=== PATIENT | female | born 1950 | race Asian ===

== ENCOUNTER → 2020-07-24 | Outpatient (CLI) | payer MEDICARE, OTHER ==
[~2020-07-24] MED LIST: ACTONEL75 MG; CALCIUM200 MG PO; CIPRO 500MG TA500 MG PO; OMEGA 31000 MG PO; VESICARE 5MG5 MG PO; VITAMIN D 400400 IU PO; ZOCOR 40MG40 MG; ZYRTEC 10MG10 MG PO
== END ==
LOC: COL.VAS 07-23 14:00
DX: J98.6 Disorders of diaphragm (principal); J84.9 Interstitial pulmonary disease, unspecified